=== PATIENT | female | born 1965 | race American Indian/Alaskan Native ===

== ENCOUNTER 2021-03-14 02:12 | Emergency (ER) | payer OTHER ==
[~2021-03-14] VITALS: Ht 167.6 cm; Wt 112.0 kg
[~2021-03-14 02:12] MED LIST: LORA1 PO
[2021-03-14 02:54] LABS: BASOPHILS ABSOLUTE AUTO 0.05 K/mm3 (0.00-0.23); BASOPHILS PERCENT AUTO 1 % (0-2); EOSINOPHILS ABSOLUTE AUTO 0.27 K/mm3 (0.00-0.68); EOSINOPHILS PERCENT AUTO 4 % (0-6); Hematocrit 38.2 % (33.0-51.0); Hemoglobin 12.8 g/dL (11.5-16.0); IMMATURE GRAN ABSOLUTE AUTO 0.01 K/mm3 (0.00-0.10); IMMATURE GRAN PERCENT AUTO 0 % (0-1); LYMPHOCYTES ABSOLUTE AUTO 2.81 K/mm3 (0.84-5.20); LYMPHOCYTES PERCENT AUTO 43 % (21-46); MONOCYTES ABSOLUTE AUTO 0.75 K/mm3 (0.16-1.47); MONOCYTES PERCENT AUTO 12 % (4-13); Mean Corpuscular HGB 31.2 pg (26.0-34.0); Mean Corpuscular HGB Conc 33.5 g/dL (31.5-36.5); Mean Corpuscular Volume 93 fL (80-100); Mean Platelet Volume 9.1 fL (9.1-12.4); NEUTROPHILS ABSOLUTE AUTO 2.66 K/mm3 (1.96-9.15); NEUTROPHILS PERCENT AUTO 41 % (41-73); Platelet Count 356 K/mm3 (150-400); RDW Coefficient Variation 12.2 % (11.7-14.2); RDW Standard Deviation 42.3 fL (35.1-46.3); White Blood Cell Count 6.55 K/mm3 (4.00-11.30)
[2021-03-14 03:07] LABS: Anion Gap 6 mmol/L (6-16); Blood Urea Nitrogen 17 mg/dL (8-24); Bun/Creatinine Ratio 15.5 (12.0-20.0); CO2, Blood 28 mmol/L (21-32); Calcium, Blood 9.1 mg/dL (8.5-10.1); Chloride, Blood 105 mmol/L (98-108); Glomerular Filtration Rate 51 (60-); Glucose, Blood 91 mg/dL (70-99); Potassium, Blood 3.4 mmol/L (3.5-5.5); Sodium, Blood 139 mmol/L (136-145); Troponin I <0.015 ng/mL (0.000-0.040)
== END 2021-03-14 05:54 | disposition home or self-care (01) ==
LOC: ER 02:12
PROVIDERS: Student in an Organized Health Care Education/Training Program
DX: R07.89 Other chest pain (principal); I10 Essential (primary) hypertension; Z88.8 Allergy status to other drugs, medicaments and biological substances; Z79.899 Other long term (current) drug therapy
CPT/HCPCS: 36415; 71045; 80048; 84484; 85025; 93005; 93010; 99285-25

== ENCOUNTER 2021-04-29 06:56 | Day surgery (SDC) | payer OTHER ==
[2021-04-29] MEDS ORDERED: BUPROPION HCL100 MG PO (08:03)
[2021-04-29] MEDS ORDERED: Hydrochloroth12.5 MG PO (08:04)
[2021-04-29] MEDS ORDERED: GABA100 PO (08:04)
[2021-04-29] MEDS ORDERED: Prinivil10 MG PO (08:04)
[2021-04-29] MEDS ORDERED: TRAM50 PO (08:05)
[2021-04-29] MEDS ORDERED: PROP10 PO (08:05)
--- NOTE | 2021-04-29 08:15 | NUR ---
LINQ PLACED L MID STERNAL AREA BY DR MONROE. PT TOLERATED PROCEDURE WELL.
--- NOTE | 2021-04-29 08:47 | NUR ---
PT AND VERBALIZED UNDERSTANDING OF WRITTEN AND VERBAL D/C INST. PT TAKEN OUT OF HRT CENTER VIA W/C.
== END 2021-04-30 12:00 | disposition home or self-care (01) ==
LOC: MHTC 06:56
DX: R55 Syncope and collapse (principal)
CPT/HCPCS: 33285; C1764

== ENCOUNTER 2024-12-21 17:28 | Emergency (ER) | payer OTHER ==
[~2024-12-21] VITALS: Ht 167.6 cm; Wt 117.9 kg
[~2024-12-21 17:28] MED LIST changes: +BUPROPION HCL100 MG PO; +GABA100 PO; +Hydrochloroth12.5 MG PO; +PROP10 PO; +Prinivil10 MG PO; +TRAM50 PO
[2024-12-21] MEDS ORDERED: IBUP600 PO (18:27)
[2024-12-21 19:02] VITALS: BP 161/90
== END 2024-12-21 19:11 | disposition home or self-care (01) ==
LOC: ER 17:28
DX: S09.90XA Unspecified injury of head, initial encounter (principal); S16.1XXA Strain of muscle, fascia and tendon at neck level, initial encounter; W22.8XXA Striking against or struck by other objects, initial encounter; Z79.899 Other long term (current) drug therapy; Z88.8 Allergy status to other drugs, medicaments and biological substances
CPT/HCPCS: 70450; 72125; 99284-25; L0160